=== PATIENT | female | born 1950 | race Caucasian/White ===

== ENCOUNTER 2017-12-01 15:28 | Emergency (ER) | payer MEDICARE, MEDICAID ==
[~2017-12-01] VITALS: Ht 160 cm; Wt 61.7 kg
[~2017-12-01 15:28] MED LIST: ACET-1008 PO; ALBU18HF2 IH; CELE-193 PO; CLOT30CR TOP; DULO-31 PO; FERR325T39 PO; HALLS; LORA-512 PO; MAGN-64 PO; METAMUCIL425 GM PO; METF500T7 PO; NEOM1PAC2 TP; OMEP-84 PO; RISP2TAB3 PO; SIMV10TA2 PO; SITA100T15 PO; TRIA15CR61 TP; ZIPR40CA2 PO; [UNRECOGNIZED DRUG - CODE] PO; [UNRECOGNIZED DRUG - CODE] TP; [UNRECOGNIZED DRUG - OTHER] TOP
[2017-12-01 16:19] LABS: CLARITY,URINE CLEAR (Clear); COLOR,URINE YELLOW (Yellow); GLUCOSE, URINE NEGATIVE (Neg); KETONES,URINE NEGATIVE (Neg); LEUKOCYTE ESTERASE ,URINE NEGATIVE (Neg); NITRITES, URINE NEGATIVE (Neg); OCCULT BLOOD,URINE NEGATIVE (Neg); PH,URINE 7.5 (4.8-8.0); PROTEIN,URINE NEGATIVE (Neg); UA COLLECTION TYPE CLN CATCH MIDSTREAM; URINE HCG NEGATIVE (NEG); UROBILINOGEN,URINE 0.2 E.U/dL (0.2-1.0)
[2017-12-01 16:31] LABS: BASOPHILS % (AUTO) 0.5 % (0-1); EOSINOPHILS # (AUTO) 0.3 X10'3 (0-0.9); EOSINOPHILS % (AUTO) 3.8 % (0-6); HEMATOCRIT 28.1 % (35.0-45.0); HEMOGLOBIN 9.1 g/dl (12.0-16.0); LYMPHOCYTES # (AUTO) 1.8 X10'3 (1.1-4.8); LYMPHOCYTES % (AUTO) 27.1 % (21-51); MEAN CORPUSCULAR HEMOGLOBIN 25.6 PG (27.0-31.0); MEAN CORPUSCULAR HGB CONC 32.3 % (33.0-36.5); MEAN CORPUSCULAR VOLUME 79.4 FL (78-98); MEAN PLATELET VOLUME 7.2 FL (7.4-10.4); MONOCYTES # (AUTO) 0.4 X10'3 (0-0.9); MONOCYTES % (AUTO) 5.8 % (2-12); NEUTROPHILS # (AUTO) 4.2 X10'3 (1.8-7.7); NEUTROPHILS % (AUTO) 62.8 % (42-75); PLATELET COUNT 291 X10'3 (140-440); RED BLOOD COUNT 3.54 X10'6 (4.20-5.60); RED CELL DISTRIBUTION WIDTH 14.2 % (11.5-14.5); WHITE BLOOD COUNT 6.7 X10'3 (4.5-11.0)
[2017-12-01 16:39] LABS: INR 1.1 INR; PROTHROMBIN TIME 11.4 SECONDS (9.0-12.0)
[2017-12-01 16:44] LABS: ALANINE AMINOTRANSFERASE 14 U/L (12-78); ALBUMIN 2.3 G/DL (3.4-5.0); ALBUMIN/GLOBULIN RATIO 0.5 (1.1-1.5); ALKALINE PHOSPHATASE 115 IU/L (46-116); ANION GAP 8 (8-16); ASPARTATE AMINO TRANSFERASE 11 U/L (10-37); BILIRUBIN,TOTAL 0.3 MG/DL (0.1-1.0); BLOOD UREA NITROGEN 18 MG/DL (7-18); BUN/CREATININE RATIO 24.7 (6.6-38.0); CALCIUM 8.6 MG/DL (8.5-10.1); CHLORIDE 104 MMOL/L (99-107); CREATININE 0.73 MG/DL (0.40-0.90); GLUCOSE 111 MG/DL (70-104); POTASSIUM 4.3 MMOL/L (3.5-5.1); SODIUM 140 MMOL/L (135-145); TOTAL CARBON DIOXIDE 27.9 MMOL/L (24-32); TOTAL PROTEIN 6.6 G/DL (6.4-8.2); eGFR 80 ML/MIN
[2017-12-01 17:42] VITALS: BP 134/67
== END 2017-12-01 17:44 | disposition home or self-care (01) ==
LOC: ER 15:30
DX: K62.3 Rectal prolapse (principal); E78.00 Pure hypercholesterolemia, unspecified; J45.909 Unspecified asthma, uncomplicated; E11.9 Type 2 diabetes mellitus without complications; Z79.899 Other long term (current) drug therapy; Z88.5 Allergy status to narcotic agent
CPT/HCPCS: 36415; 80053; 81003; 81025; 85025; 85610; 99284

== ENCOUNTER 2018-01-26 09:12 | Emergency (ER) | payer MEDICARE, MEDICAID ==
[~2018-01-26] VITALS: Ht 160 cm; Wt 63.6 kg
[2018-01-26 09:18] VITALS: BP 133/79
[2018-01-26] MEDS ORDERED: CEPH-572 PO (09:33)
[2018-01-26] MEDS ORDERED: SULF1TAB49 PO (09:33)
== END 2018-01-26 09:40 | disposition home or self-care (01) ==
LOC: ER 09:13
DX: L03.115 Cellulitis of right lower limb (principal); E11.9 Type 2 diabetes mellitus without complications; E78.00 Pure hypercholesterolemia, unspecified; J45.909 Unspecified asthma, uncomplicated; Z79.2 Long term (current) use of antibiotics; Z79.84 Long term (current) use of oral hypoglycemic drugs; Z79.899 Other long term (current) drug therapy
CPT/HCPCS: 99283

== ENCOUNTER 2020-08-30 08:40 | Emergency (ER) | payer MEDICARE, MEDICAID ==
[~2020-08-30] VITALS: Ht 160 cm; Wt 67.3 kg
[~2020-08-30 08:40] MED LIST changes: +CALC500T11 PO; +CARB15DR91 EACH EAR; -CELE-193 PO; +CHOL400T14 PO; -CLOT30CR TOP; +ESTR42.53 VG; +FLUT16SP26 NS; +GABA-532 PO; +GLIM2TAB6 PO; -HALLS; +HYDR-3686 PO; -METAMUCIL425 GM PO; +METF-900 PO; -METF500T7 PO; -NEOM1PAC2 TP; -OMEP-84 PO; +PANT-47 PO; -RISP2TAB3 PO; +RISP2TAB85 PO; +SIME80TA15 PO; +SIMV-45 PO; -SIMV10TA2 PO; -SITA100T15 PO; +TRAZ-251 PO; -TRIA15CR61 TP; -ZIPR40CA2 PO; +ZIPR80CA10 PO; -[UNRECOGNIZED DRUG - CODE] PO; -[UNRECOGNIZED DRUG - OTHER] TOP
[2020-08-30 08:54] VITALS: BP 97/42
== END 2020-08-30 12:06 | disposition home or self-care (01) ==
LOC: ER 08:40
DX: S42.002A Fracture of unspecified part of left clavicle, initial encounter for closed fracture (principal); S90.31XA Contusion of right foot, initial encounter; E78.00 Pure hypercholesterolemia, unspecified; J45.909 Unspecified asthma, uncomplicated; E11.9 Type 2 diabetes mellitus without complications; Z88.0 Allergy status to penicillin; Z88.8 Allergy status to other drugs, medicaments and biological substances; Z79.899 Other long term (current) drug therapy; W07.XXXA Fall from chair, initial encounter; Z91.81 History of falling; Y93.89 Activity, other specified; Y92.89 Other specified places as the place of occurrence of the external cause; Y99.8 Other external cause status
CPT/HCPCS: 73030; 73630; 99284

== ENCOUNTER 2021-01-27 20:46 | Emergency (ER) | payer MEDICARE, MEDICAID ==
[~2021-01-27] VITALS: Ht 160 cm; Wt 63.0 kg
[2021-01-27 20:59] VITALS: BP 119/57
== END 2021-01-28 00:10 | disposition home or self-care (01) ==
LOC: ER 20:47
DX: M25.551 Pain in right hip (principal); M25.561 Pain in right knee; E78.00 Pure hypercholesterolemia, unspecified; J45.909 Unspecified asthma, uncomplicated; E11.9 Type 2 diabetes mellitus without complications; F20.9 Schizophrenia, unspecified; Z98.890 Other specified postprocedural states; Z88.0 Allergy status to penicillin; Z88.5 Allergy status to narcotic agent; Z88.8 Allergy status to other drugs, medicaments and biological substances; Z79.899 Other long term (current) drug therapy
CPT/HCPCS: 72192; 73502; 73564; 99284

== ENCOUNTER 2021-04-11 18:02 | Emergency (ER) | payer MEDICARE, MEDICAID ==
[~2021-04-11] VITALS: Ht 160 cm; Wt 66.4 kg
[2021-04-11 18:11] VITALS: BP 139/60
== END 2021-04-11 20:01 | disposition home or self-care (01) ==
LOC: ER 18:03
DX: M79.674 Pain in right toe(s) (principal); F79 Unspecified intellectual disabilities; M06.9 Rheumatoid arthritis, unspecified; E78.00 Pure hypercholesterolemia, unspecified; J45.909 Unspecified asthma, uncomplicated; E11.9 Type 2 diabetes mellitus without complications; Z88.0 Allergy status to penicillin; Z88.8 Allergy status to other drugs, medicaments and biological substances; Z79.899 Other long term (current) drug therapy
CPT/HCPCS: 73630; 99283

== ENCOUNTER 2021-10-21 09:01 | Day surgery (SDC) | payer MEDICARE, MEDICAID ==
[2021-10-15 15:09] LABS: BASOPHILS % (AUTO) 0.5 % (0-1); EOSINOPHILS # (AUTO) 0.1 X10'3 (0-0.9); EOSINOPHILS % (AUTO) 1.7 % (0-6); LYMPHOCYTES # (AUTO) 1.4 X10'3 (1.1-4.8); LYMPHOCYTES % (AUTO) 23.1 % (21-51); MEAN CORPUSCULAR HEMOGLOBIN 29.8 PG (27.0-31.0); MEAN CORPUSCULAR VOLUME 90.4 FL (78-98); MEAN PLATELET VOLUME 9.8 FL (7.4-10.4); MONOCYTES # (AUTO) 0.4 X10'3 (0-0.9); MONOCYTES % (AUTO) 6.7 % (2-12); PRE OP HEMATOCRIT 37.9 % (35.0-45.0); PRE OP HEMOGLOBIN 12.5 g/dL (12.0-16.0); PRE OP PLATELET COUNT 163 X10'3 (140-440); RED CELL DISTRIBUTION WIDTH 13.9 % (11.5-14.5)
[2021-10-15 15:21] LABS: PRE OP PROTIME 10.5 SECONDS (9.0-12.0)
[2021-10-15 15:27] LABS: ALBUMIN 3.3 G/DL (3.4-5.0); ALBUMIN/GLOBULIN RATIO 0.8 (1.1-1.5); ALKALINE PHOSPHATASE 99 IU/L (46-116); BLOOD UREA NITROGEN 25 MG/DL (7-18); CALCIUM 8.8 MG/DL (8.5-10.1); CHLORIDE 100 MMOL/L (99-107); CREATININE 0.61 MG/DL (0.40-0.90); PRE OP ALT 15 U/L (30-65); PRE OP ANION GAP 3 (8-16); PRE OP AST 10 U/L (10-37); PRE OP BILIRUB, TOTAL 0.3 MG/DL (0.0-1.0); PRE OP GLUCOSE 90 MG/DL (70-104); PRE OP POTASSIUM 4.8 MMOL/L (3.4-5.1); PRE OP SODIUM 137 MMOL/L (135-145); TOTAL CARBON DIOXIDE 34.1 MMOL/L (24-32); TOTAL PROTEIN 7.4 G/DL (6.4-8.2); eGFR > 90 ML/MIN
[2021-10-21] VITALS (10 sets, daily range): BP systolic 99–154; BP diastolic 45–66
[~2021-10-21] VITALS: Ht 160 cm; Wt 60.1 kg
[~2021-10-21 09:01] MED LIST changes: +DIVA125T31 PO; -GLIM2TAB6 PO; +GLIM4TAB PO; +HALO1TAB PO; +METH2.5T55 PO; -RISP2TAB85 PO; -ZIPR80CA10 PO; +famotidine 20mg tablet PO ONE; +ringers solution, lacted 1,000 ML IV SCH; +vancomycin/NS 1 GM in NS 250 ML IV ONE
[2021-10-21] MEDS ORDERED: ringers solution, lacted 1,000 ML IV SCH (10:20)
[2021-10-21] MEDS ORDERED: labetalol 20mg/4ml (5mg/ml) syringe IV PRN (10:20)
[2021-10-21] MEDS ORDERED: hydrALAZINE 20mg/ml inj. IV PRN (10:20)
[2021-10-21] MEDS ORDERED: morphine 2 MG/ML inj. syringe IV PRN (10:20)
[2021-10-21] MEDS ORDERED: ondansetron/PF 4mg/2ml inj IV PRN (10:20)
[2021-10-21] MEDS ORDERED: BUPIVAcaine/PF 2.5 mg/ml (0.25%) 30ml vial ONE (10:20)
[2021-10-21] MEDS ORDERED: morphine 4 MG/ML inj SYRINge IV PRN (10:20)
[2021-10-21] MEDS ORDERED: fentaNYL/PF 50MCG/1 ML 2ML syringe IV PRN ×2 (10:20)
[2021-10-21] MEDS ORDERED: vancomycin 1,000mg inj ONE (10:23)
[2021-10-21] MEDS ORDERED: ceFAZolin 1000mg inj ONE (10:23)
[2021-10-21] MEDS ORDERED: propofol inj 20 ML IV ONE (10:31)
[2021-10-21] MEDS ORDERED: LIDOcaine 1%/PF 5ML 10 MG/ML VIAL ONE (10:31)
[2021-10-21] MEDS ORDERED: midazolam 1 mg/ML 2ml injection ONE (10:31)
[2021-10-21] MEDS ORDERED: fentaNYL/PF 50MCG/1 ML 2ML syringe ONE (10:31)
[2021-10-21] MEDS ORDERED: ondansetron/PF 4mg/2ml inj ONE (10:32)
[2021-10-21] MEDS ORDERED: dexamethasone sod phosphate 10mg/ml inj ONE (10:37)
[2021-10-21] MEDS ORDERED: sevoflurane 250ml liquid IH ONE (10:37)
[2021-10-21] MEDS ORDERED: labetalol 20mg/4ml (5mg/ml) syringe IV ONE (11:48)
[2021-10-21] MEDS ORDERED: BUPIVAcaine/PF 2.5 mg/ml (0.25%) 30ml vial IJ ONE (12:00)
--- NOTE | 2021-10-21 12:16 | NUR ---
Received from OR via [facility], accompanied by Anesthesiologist and report given by FLACO Anesthesiologist. PATIENT WAKING UP, DENIES PAIN, V/S WNL, 20G TO LUE, RIGHT HAND DRESSING AND FREDDY WRAP DRESSING C/D/I. RUE ELEVATED AND APPLIED ICE PACK. Addendum: 10/21/21 at 1245 by Olu Holder RN Amended: Links added.
--- NOTE | 2021-10-21 13:36 | NUR ---
ALL DISCHARGE CRITERIA HAS BEEN MET. VSS, PAIN AT A TOLERABLE LEVEL, ABLE TO SAFELY AMBULATE AND TRANSFER SELF. IV TAKEN OUT WITHOUT ANY COMPLICATIONS. ALL DISCHARGE INSTRUCTIONS COVERED WITH PATIENT AND ALL QUESTIONS ANSWERED. PATIENT TAKEN OUT VIA WHEELCHAIR WITH ALL BELONGINGS TO PERSONAL VEHICLE WHERE CAREGIVER DROVE PATIENT HOME. Addendum: 10/21/21 at 1351 by Olu Holder RN Amended: Links added.
== END 2021-10-21 13:36 | disposition home or self-care (01) ==
LOC: PAS 09:01
PROVIDERS: ATTEND Orthopaedic Surgery
DX: M20.091 Other deformity of right finger(s) (principal); K21.9 Gastro-esophageal reflux disease without esophagitis; D64.9 Anemia, unspecified; E11.9 Type 2 diabetes mellitus without complications; M06.9 Rheumatoid arthritis, unspecified; Z79.899 Other long term (current) drug therapy; Z79.01 Long term (current) use of anticoagulants; Z98.49 Cataract extraction status, unspecified eye; Z96.642 Presence of left artificial hip joint; Z98.890 Other specified postprocedural states
CPT/HCPCS: 26860; 36415; 80053; 82948; 85025; 85610; 85730; 87811; 93005; A6222; C1713; J0690; J1100; J2250; J2405; J2704; J3010; J3370; J3490; J7030; J7120; Z7506; Z7508; Z7512; A4215; A4618; A6449; A7000; C1769

== ENCOUNTER 2022-01-29 16:11 | Emergency (ER) | payer MEDICARE, MEDICAID ==
[~2022-01-29] VITALS: Ht 160 cm; Wt 65.0 kg
[~2022-01-29 16:11] MED LIST changes: -ESTR42.53 VG; -famotidine 20mg tablet PO ONE; -ringers solution, lacted 1,000 ML IV SCH; -vancomycin/NS 1 GM in NS 250 ML IV ONE
[2022-01-29 17:22] VITALS: BP 129/57
--- NOTE | 2022-01-29 18:52 | NUR ---
Caregiver states that she was "Able to work something out" and that they no longer need a prescription refill. Pt wheeled off the unit in no acute distress.
== END 2022-01-29 18:55 | disposition left against medical advice (07) ==
LOC: ER 16:12
DX: Z76.0 Encounter for issue of repeat prescription (principal); Z53.21 Procedure and treatment not carried out due to patient leaving prior to being seen by health care provider

== ENCOUNTER 2022-04-06 11:16 | Emergency (ER) | payer MEDICARE, MEDICAID ==
[~2022-04-06] VITALS: Ht 167.6 cm; Wt 58.0 kg
[2022-04-06 11:59] LABS: EOSINOPHILS # (AUTO) 0.1 X10'3 (0-0.9); EOSINOPHILS % (AUTO) 1.3 % (0-6); HEMATOCRIT 36.2 % (35.0-45.0); HEMOGLOBIN 11.8 g/dl (12.0-16.0); LYMPHOCYTES % (AUTO) 18.5 % (21-51); MEAN CORPUSCULAR HEMOGLOBIN 28.7 PG (27.0-31.0); MEAN CORPUSCULAR HGB CONC 32.7 g/dL (33.0-36.5); MEAN CORPUSCULAR VOLUME 87.8 FL (78-98); MEAN PLATELET VOLUME 10.2 FL (7.4-10.4); MONOCYTES # (AUTO) 0.3 X10'3 (0-0.9); MONOCYTES % (AUTO) 5.8 % (2-12); NEUTROPHILS # (AUTO) 3.8 X10'3 (1.8-7.7); NEUTROPHILS % (AUTO) 73.4 % (42-75); PLATELET COUNT 151 X10'3 (140-440); RED BLOOD COUNT 4.12 X10'6 (4.20-5.60); RED CELL DISTRIBUTION WIDTH 15.3 % (11.5-14.5); WHITE BLOOD COUNT 5.2 X10'3 (4.5-11.0)
[2022-04-06 12:13] LABS: ALANINE AMINOTRANSFERASE 19 U/L (12-78); ALBUMIN 3.2 G/DL (3.4-5.0); ALBUMIN/GLOBULIN RATIO 0.8 (1.1-1.5); ALKALINE PHOSPHATASE 97 IU/L (46-116); ANION GAP 3 (8-16); ASPARTATE AMINO TRANSFERASE 15 U/L (10-37); BILIRUBIN,TOTAL 0.3 MG/DL (0.1-1.0); BLOOD UREA NITROGEN 21 MG/DL (7-18); BUN/CREATININE RATIO 32.3 (6.6-38.0); CHLORIDE 103 MMOL/L (99-107); CREATININE 0.65 MG/DL (0.40-0.90); GLUCOSE 130 MG/DL (70-104); LIPASE 129 U/L (73-393); POTASSIUM 4.7 MMOL/L (3.5-5.1); SODIUM 138 MMOL/L (135-145); TOTAL CARBON DIOXIDE 31.6 MMOL/L (24-32); eGFR 90 ML/MIN
[2022-04-06] MEDS ORDERED: ipratropium/albuterol 3ml nebule NEB ONE (12:20)
[2022-04-06] MEDS ORDERED: MESSAGE TO NURSING PO NR (13:00)
[2022-04-06] MEDS ORDERED: iohexol 350MG/ML 100ml bottle IV ONE (13:06)
[2022-04-06 14:03] LABS: CLARITY,URINE CLEAR (Clear); COLOR,URINE YELLOW (Yellow); GLUCOSE, URINE NEGATIVE (Neg); KETONES,URINE NEGATIVE (Neg); LEUKOCYTE ESTERASE ,URINE NEGATIVE (Neg); NITRITES, URINE NEGATIVE (Neg); OCCULT BLOOD,URINE NEGATIVE (Neg); PH,URINE 7.5 (4.8-8.0); PROTEIN,URINE NEGATIVE (Neg); UROBILINOGEN,URINE 0.2 E.U/dL (0.2-1.0)
[2022-04-06 14:04] LABS: UA COLLECTION TYPE VOIDED
[2022-04-06] MEDS ORDERED: TRAM50TA2 PO (15:53)
[2022-04-06 16:06] VITALS: BP 133/63
== END 2022-04-06 16:19 | disposition home or self-care (01) ==
LOC: ER 11:16
DX: C34.90 Malignant neoplasm of unspecified part of unspecified bronchus or lung (principal); J45.909 Unspecified asthma, uncomplicated; R07.81 Pleurodynia; J90 Pleural effusion, not elsewhere classified; E78.00 Pure hypercholesterolemia, unspecified; E11.9 Type 2 diabetes mellitus without complications; M19.90 Unspecified osteoarthritis, unspecified site; Z88.0 Allergy status to penicillin; Z88.5 Allergy status to narcotic agent; Z88.8 Allergy status to other drugs, medicaments and biological substances; Z87.891 Personal history of nicotine dependence
CPT/HCPCS: 36415; 71045; 71275; 80053; 81003; 83690; 85025; 94640; 99285; J3490; Q9967; 94760